=== PATIENT | female | born 1985 | race Caucasian/White ===

== ENCOUNTER 2023-05-10 15:10 | Outpatient (CLI) | payer OTHER, SELFPAY | END 2023-05-10 15:11 | disposition home or self-care (01) | LOC: NFLDREF 05-11 07:58 | PROVIDERS: Visit Provider Obstetrics & Gynecology | DX: O20.9 Hemorrhage in early pregnancy, unspecified (principal) | CPT/HCPCS: 84702 ==

== ENCOUNTER 2023-05-12 15:30 | Outpatient (CLI) | payer OTHER, SELFPAY | END 2023-05-12 15:31 | disposition home or self-care (01) | PROVIDERS: Visit Provider Obstetrics & Gynecology | DX: O20.9 Hemorrhage in early pregnancy, unspecified (principal) | CPT/HCPCS: 36415; 84702 ==

== ENCOUNTER 2023-05-18 10:28 | Outpatient (CLI) | payer OTHER, SELFPAY | END 2023-05-18 10:29 | disposition home or self-care (01) | PROVIDERS: Visit Provider Obstetrics & Gynecology | DX: Z32.00 Encounter for pregnancy test, result unknown (principal) | CPT/HCPCS: 84702 ==

== ENCOUNTER 2023-05-25 09:40 | Outpatient (CLI) | payer OTHER, SELFPAY | END 2023-05-25 09:41 | disposition home or self-care (01) | LOC: NFLDREF 05-28 09:26 | PROVIDERS: Visit Provider Obstetrics & Gynecology | DX: O03.9 Complete or unspecified spontaneous abortion without complication (principal) | CPT/HCPCS: 84702 ==

== ENCOUNTER 2023-06-01 09:30 | Outpatient (CLI) | payer OTHER, SELFPAY | END 2023-06-01 09:31 | disposition home or self-care (01) | LOC: NFLDREF 06-03 07:28 | PROVIDERS: Visit Provider Obstetrics & Gynecology | DX: O03.9 Complete or unspecified spontaneous abortion without complication (principal) | CPT/HCPCS: 84702 ==

== ENCOUNTER 2023-06-08 09:45 | Outpatient (CLI) | payer OTHER, SELFPAY | END 2023-06-08 09:46 | disposition home or self-care (01) | LOC: NFLDREF 06-09 13:01 | PROVIDERS: Visit Provider Obstetrics & Gynecology | DX: O02.1 Missed abortion (principal) | CPT/HCPCS: 84702 ==

== ENCOUNTER 2023-06-15 09:35 | Outpatient (CLI) | payer OTHER, SELFPAY | END 2023-06-15 09:36 | disposition home or self-care (01) | LOC: NFLDREF 06-17 01:31 | PROVIDERS: Visit Provider Obstetrics & Gynecology | DX: O03.9 Complete or unspecified spontaneous abortion without complication (principal) | CPT/HCPCS: 84702 ==

== ENCOUNTER 2023-11-05 14:36 | Outpatient (CLI) | payer OTHER, SELFPAY | END 2023-11-05 14:37 | disposition home or self-care (01) | PROVIDERS: Visit Provider Obstetrics & Gynecology | DX: N96 Recurrent pregnancy loss (principal) | CPT/HCPCS: 82232; 82947; 83001; 84144; 84439; 84443; 85610; 85613; 85730; 86146; 86147; 88262 ==

== ENCOUNTER 2023-11-16 15:55 | Outpatient (CLI) | payer OTHER, SELFPAY | END 2023-11-16 15:56 | disposition home or self-care (01) | LOC: NFLDREF 11-21 05:48 | PROVIDERS: Visit Provider Obstetrics & Gynecology | DX: N96 Recurrent pregnancy loss (principal) | CPT/HCPCS: 84144 ==